=== PATIENT | male | born 1975 | race Hispanic/Latino ===

== ENCOUNTER → 2019-05-09 | Outpatient (CLI) | payer MEDICARE | END | disposition home or self-care (01) | LOC: SHCH 13:56 | PROVIDERS: ATTEND Internal Medicine Cardiovascular Disease | DX: I11.9 Hypertensive heart disease without heart failure (principal) | CPT/HCPCS: 93306 ==

== ENCOUNTER → 2019-05-11 | Outpatient (CLI) | payer MEDICARE ==
[~2019-05-11] VITALS: Ht 180.3 cm; Wt 129.7 kg
[~2019-05-11] MED LIST: REGADENOSON 0.4 MG/5 ML PF SYG IVP SCH
== END | disposition home or self-care (01) ==
LOC: SHCH 08:09
PROVIDERS: ATTEND Internal Medicine Cardiovascular Disease
DX: R07.9 Chest pain, unspecified (principal)
CPT/HCPCS: 78452; 93017; 96374; A9500 ×2; J2785

== ENCOUNTER 2019-06-27 07:25 | Day surgery (SDC) | payer MEDICARE ==
[2019-06-22 09:35] VITALS: BP 150/78
[2019-06-22 09:41] LABS: BASOPHILS % (AUTO) 0.3 % (0.0-5.0); EOSINOPHILS % (AUTO) 1.6 % (0.0-8.0); HEMATOCRIT 39.7 % (42-54); LYMPHOCYTES % (AUTO) 24.9 % (21.0-51.0); MEAN CORPUSCULAR HEMOGLOBIN 29.8 pg (27.0-33.0); MEAN CORPUSCULAR HGB CONC 33.9 g/dL (32.0-36.0); MONOCYTES % (AUTO) 6.2 % (3.0-13.0); PLATELET COUNT (AUTO) 181 K/uL (130-400); RED BLOOD CELL COUNT(AUTO) 4.51 MIL/uL (4.50-6.20); RED CELL DISTRIBUTION WIDTH 13.7 % (11.0-15.5); WHITE BLOOD COUNT (AUTO) 5.6 K/uL (4.8-10.8)
[2019-06-22 09:45] LABS: APPEARANCE,URINE Clear (CLEAR); BILIRUBIN,URINE Negative (NEGATIVE); COLOR,URINE Yellow (YELLOW); GLUCOSE, URINE (UA) Negative (NEGATIVE); KETONES,URINE Negative (NEGATIVE); LEUKOCYTE ESTERASE ,URINE Negative (NEGATIVE); NITRATE,URINE Negative (NEGATIVE); OCCULT BLOOD,URINE Negative (NEGATIVE); PH,URINE 5.5 (5.0-8.0); PROTEIN,URINE Negative (NEGATIVE); UROBILINOGEN,URINE 0.2 mg/dL (0.2-1.0)
[2019-06-22 09:47] LABS: CREATININE 0.9 mg/dL (0.5-1.5); POTASSIUM 4.2 mmol/L (3.5-5.1)
[2019-06-22 09:50] LABS: INR 0.95 (0.85-1.15); PARTIAL THROMBOPLASTIN TIME 26.5 SEC (26.3-35.5)
[2019-06-27] VITALS (11 sets, daily range): BP systolic 104–161; BP diastolic 60–75
[~2019-06-27] VITALS: Ht 181.6 cm; Wt 134.7 kg
[~2019-06-27 07:25] MED LIST changes: +ACYC200C PO; +CARB200T6 PO; +ESOMEPRAZOLE PO; +HYDR-3421 PO; +LISI10TA7 PO; +METO-408 PO; +PROP80TA4 PO; -REGADENOSON 0.4 MG/5 ML PF SYG IVP SCH; +ROSU10TA28 PO; +SODIUM CHLORIDE 0.9% 500ML 500 ML IV SCH; +TRAZADONE PO
[2019-06-27] MEDS ORDERED: SODIUM CHLORIDE 0.9% 1000ML 1,000 ML IV ONE (09:22)
[2019-06-27] MEDS ORDERED: HEPARIN SODIUM 1000UNIT/ML 10ML VIAL ONE (09:51)
[2019-06-27] MEDS ORDERED: SODIUM BICARB 50MEQ 50ML VIAL ONE (09:51)
[2019-06-27] MEDS ORDERED: IOHEXOL 350 MG/ML 100ML INFUS..BTL IV ONE (09:51)
[2019-06-27] MEDS ORDERED: LIDOCAINE HCL 2% 20ML ONE (09:51)
[2019-06-27] MEDS ORDERED: IOHEXOL-350 50ML VIAL IV ONE (09:51)
[2019-06-27] MEDS ORDERED: NITROGLYCERIN 5 MG/ML 10 ML VIAL IV ONE (09:51)
[2019-06-27] MEDS ORDERED: SODIUM CHLORIDE 0.9% 1000ML 1,000 ML IV SCH (11:07)
[2019-06-27] MEDS ORDERED: ACETAMINOPHEN-CODEINE 300/30MG TAB ONE (12:09)
[2019-06-27] MEDS ORDERED: ACETAMINOPHEN-CODEINE 300/30MG TAB PO SCH (12:15)
--- NOTE | 2019-06-27 15:45 | NUR ---
Pt discharged home, tolerating fluids/solids well, ambulating well after bedrest. Site to right groin remains, soft, non-tender, dressing dry, clean and intact. Pt's back pain not as severe as initially and pt experienced some relief after being able to get out of bed. Pt instructed in routine and emergency care of right cath site. Pt and fiance verbalize understanding. Pt and family deny any further questions at this time.
== END 2019-06-27 15:45 | disposition home or self-care (01) ==
LOC: DAH 07:25
PROVIDERS: ATTEND Internal Medicine Cardiovascular Disease
DX: I25.10 Atherosclerotic heart disease of native coronary artery without angina pectoris (principal); I10 Essential (primary) hypertension; F31.9 Bipolar disorder, unspecified; E78.5 Hyperlipidemia, unspecified; M54.17 Radiculopathy, lumbosacral region; Z79.01 Long term (current) use of anticoagulants; Z79.899 Other long term (current) drug therapy
CPT/HCPCS: 36415; 71045; 80048; 81003; 85025; 85610; 85730; 93005; 93458; A4215; A4216; A4221; A4222; A4223 ×3; A4606; A4663; C1760; C1894; J1644; J3490 ×3; J7030; Q9965; Q9967 ×2

== ENCOUNTER 2019-07-04 21:13 | Emergency (ER) | payer MEDICARE ==
[~2019-07-04 21:13] MED LIST changes: -SODIUM CHLORIDE 0.9% 500ML 500 ML IV SCH
== END 2019-07-04 22:54 | disposition home or self-care (01) ==
LOC: EDH 21:13
DX: R59.9 Enlarged lymph nodes, unspecified (principal); I10 Essential (primary) hypertension
CPT/HCPCS: 76882

== ENCOUNTER 2022-11-17 10:15 | Emergency (ER) | payer OTHER, MEDICARE ==
[~2022-11-17] VITALS: Ht 180.3 cm; Wt 102.5 kg
[~2022-11-17 10:15] MED LIST changes: -ACYC200C PO; +ACYC200C24 PO; +LISI10TA24 PO; -LISI10TA7 PO
[2022-11-17 10:16] VITALS: BP 162/99
[2022-11-17] MEDS ORDERED: LIDOCAINE HCL 2% VISCOUS 15 ML UDCUP PO ONE (10:30)
[2022-11-17] MEDS ORDERED: KETOROLAC 30MG VIAL (30MG/ML) IM ONE (10:30)
[2022-11-17] MEDS ORDERED: AMOX/CLAV 875/125MG TAB PO ONE ×2 (10:30→10:36)
[2022-11-17] MEDS ORDERED: AMOX1TAB16 PO (10:34)
[2022-11-17] MEDS ORDERED: ACET-66 PO (10:34)
[2022-11-17] MEDS ORDERED: KETOROLAC 30MG VIAL (30MG/ML) ONE (10:36)
== END 2022-11-17 11:23 | disposition home or self-care (01) ==
LOC: EDH 10:15
DX: T28.0XXA Burn of mouth and pharynx, initial encounter (principal); F31.9 Bipolar disorder, unspecified; Y27.8XXA Contact with other hot objects, undetermined intent, initial encounter; Y93.89 Activity, other specified; Y92.89 Other specified places as the place of occurrence of the external cause; Y99.8 Other external cause status
CPT/HCPCS: 99283; 96372; J1885